=== PATIENT | male | born 1995 | race African-American/Black ===

== ENCOUNTER 2022-09-21 08:26 | Outpatient (CLI) | payer OTHER, SELFPAY ==
[2022-09-21 09:52] LABS: Basophils Percent Auto 0.3 % (0.2-1.2); Eosinophils Absolute Auto 0.2 K/mm3 (0-0.3); Hematocrit 39.6 % (42.0-52.0); Hemoglobin 13.3 g/dL (14.0-18.0); Immature Granulocyte Absolute 0.08 K/mm3 (0.00-0.031); Immature Granulocyte Percent A 0.8 % (0-0.5); Lymphocytes Absolute Auto 1.95 K/mm3 (0.9-3.2); Lymphocytes Percent Auto 18.8 % (18.3-44.2); Mean Corpuscular HGB Conc 33.6 g/dl (32-36); Mean Corpuscular Hemoglobin 29.4 pg (26-34); Mean Corpuscular Volume 87.4 fl (80-100); Mean Platelet Volume 10.3 fl (7.4-10.4); Monocytes Absolute Auto 1.3 K/mm3 (0.1-0.6); Monocytes Percent Auto 12.7 % (2.6-8.5); Neutrophils Absolute Auto 6.8 K/mm3 (1.3-6.7); Neutrophils Percent Auto 65.4 % (45.5-73.1); Platelet Count Result 275 k/mm3 (150-375); Red Blood Count 4.53 M/mm3 (4.6-6.20); Red Cell Distribution Width 13.1 % (11.5-14.5); White Blood Count 10.4 K/mm3 (4.5-10.0)
[2022-09-21 10:06] LABS: Alanine Aminotransferase 39 U/L (6-50); Albumin Level 4.1 g/dL (3.5-5.1); Alkaline Phosphatase 56 U/L (38-126); Anion Gap 5 mmol/L (8-16); Aspartate Amino Transferase 30 U/L (17-59); Bilirubin,Total 0.3 mg/dL (0.2-1.3); Blood Urea Nitrogen 7 mg/dL (9-20); Calcium 8.9 mg/dL (8.4-10.2); Carbon Dioxide 27 mmol/L (22-30); Chloride 106 mmol/L (98-107); Cholesterol 191 mg/dL (0-200); Estimated Glomerular Filt Rate > 60; Glucose 80 mg/dL (65-110); HDL Direct 54 mg/dL; Potassium 3.7 mmol/L (3.4-5.0); Sodium 138 mmol/L (137-145); Triglycerides 209 mg/dL (<150)
[2022-09-21 10:12] LABS: LDL Cholesterol Direct 85 mg/dL
[2022-09-21 10:16] LABS: Hemoglobin A1C 5.1 % (<5.7)
[2022-09-21 10:51] LABS: Vitamin D 25 Hydroxy 16.6 ng/mL
[2022-09-21 11:08] LABS: Hepatitis B Core IgM Result Negative (Negative)
[2022-09-21 11:21] LABS: Hepatitis C Virus Antibody Negative (Negative)
[2022-09-22 16:03] LABS: Rapid Plasma Reagin Non-Reactive (NonReactive)
[2022-09-24 05:04] LABS: HIV 1 2 Ag Ab 4th Gen w Rflxs Nonreactive (Nonreactive)
[2022-09-27 21:32] LABS: Hepatitis B Core Ab Total Nonreactive (Nonreactive)
== END 2022-09-21 08:27 | disposition home or self-care (01) ==
LOC: ANHLAB 08:35
DX: Z79.899 Other long term (current) drug therapy (principal)
CPT/HCPCS: 36415; 80053; 80061; 82306; 83036; 84443; 85025; 86592; 86695; 86696; 86704; 86705; 86803; 87389; 87491; 87591; 87661